=== PATIENT | male | born 1975 | race Caucasian/White ===

== ENCOUNTER 2019-02-15 09:11 | Day surgery (SDC) | payer BC ==
[2019-02-12 14:10] VITALS: BMI 37.3
[2019-02-15] MEDS ORDERED: Fentanyl 250 MCG/5 ML VIAL ONE (09:25)
[2019-02-15] MEDS ORDERED: Famotidine/PF 20 mg/2ml Vial ONE (09:25)
[2019-02-15] MEDS ORDERED: Fentanyl 100 MCG/2 ML VIAL ONE (09:25)
[2019-02-15] MEDS ORDERED: Bupivacaine HCl 0.5%/Epinephrine 1:200,000/PF 30 ml Vial ONE (09:33)
[2019-02-15 09:45] LABS: #Eosinphils 0.3 thou/uL (0.0-0.7); #Lymphocytes 2.3 thou/uL (1.20-3.40); #Monocytes 0.5 thou/uL (0.11-0.59); #Neutrophils 4.1 thou/uL (1.40-6.50); %Basophils 0.4 % (0.0-1.0); %Eosinophils 3.6 % (0.0-10.0); %Lymphocytes 31.6 % (21.0-51.0); %Monocytes 7.5 % (0.0-10.0); Hemoglobin 16.7 g/dL (14.0-18.0); Mean Corpuscular HGB CONC 33.2 g/dL (32.0-36.0); Mean Corpuscular Hemoglobin 27.3 pg (27.0-31.0); Mean Corpuscular Volume 82.2 fL (78.0-98.0); Mean Platelet Volume 8.4 fL (7.4-10.4); Platelet Count 197 thou/uL (130-400); RBC Distribution Width 12.4 % (11.5-14.5); Red Blood Cell (RBC) Count 6.12 mill/uL (4.70-6.10); White Blood Cell (WBC) Count 7.2 thou/uL (4.8-10.8)
--- NOTE | 2019-02-15 10:46 | HP ---
CHIEF COMPLAINT: Umbilical hernia. HISTORY OF PRESENT ILLNESS: The patient is a 43-year-old male, who has had several year history of umbilical hernia. He fell and developed acute severe pain. It was reduced. The pain was resolved. He is here for repair. PAST MEDICAL HISTORY: Otherwise, healthy. PAST SURGICAL HISTORY: None. MEDICATIONS: No medications. ALLERGIES: NO KNOWN DRUG ALLERGIES. FAMILY HISTORY: Both parents are alive, in good health. SOCIAL HISTORY: He is . No tobacco. Rare alcohol. PHYSICAL EXAMINATION: VITAL SIGNS: Height 6 feet, weight 294, body mass index 39.98. GENERAL: He is a well-developed, well-nourished male, in no apparent distress. HEENT: Unremarkable. LUNGS: Clear. HEART: Regular rate and rhythm. ABDOMEN: Soft. He has a 2 cm umbilical hernia, which is reducible. EXTREMITIES: Good pulses. No pedal edema. ASSESSMENT: Umbilical hernia. PLAN: Umbilical hernia repair with possible mesh. CONSENT: I have discussed planned procedure as well as risk of bleeding, infection, recurrence, and injury to bowel. He understands and gives informed consent. Job ID: [id number]
--- NOTE | 2019-02-15 12:24 | OP ---
DATE OF PROCEDURE: 02/15/2019 PREOPERATIVE DIAGNOSIS: Umbilical hernia. PROCEDURE PERFORMED: Umbilical hernia repair with mesh. INDICATIONS: A 43-year-old male with a painful umbilical hernia. FINDINGS: 1 cm defect, 6.4 cm piece of mesh used. DESCRIPTION OF PROCEDURE: After informed consent was obtained, the patient was taken to the operating room, given general mask anesthesia, placed in the supine position. Abdomen was prepped and draped in usual fashion. The local anesthesia infiltrated subcutaneously and deep with 0.5% Marcaine. A subumbilical incision was performed. Subcu divided sharply. The hernia sac was dissected off the umbilical skin, then circumferentially down to the fascia and excised. Hemostasis achieved with electrocautery. Contents reduced. A 6.4 cm Proceed mesh patch was inserted intra-abdominally. The leaves were pulled up, sutured to the abdominal wall with interrupted 0 Ethibond. The mesh was further secured with 2 other 0 Ethibond sutures. Then, the umbilical skin was sutured to the fascia with interrupted 3-0 Vicryl to restore umbilical contour. The skin then closed with interrupted 4-0 Rapide. Steri-Strips applied. Sterile bandage applied. The patient tolerated the procedure well, transferred to Recovery in good condition. Sponge and needle count verified correct x2. Job ID: [id number]
[2019-02-15] MEDS ORDERED: Dexamethasone 20 MG/5 ML VIAL ONE (15:59)
[2019-02-15] MEDS ORDERED: Lidocaine 1% PF 5 ML VIAL ONE (15:59)
[2019-02-15] MEDS ORDERED: Metoclopramide HCl 10 MG/2 ML VIAL ONE (15:59)
[2019-02-15] MEDS ORDERED: Ondansetron PF 4 MG/2 ML Vial ONE (15:59)
[2019-02-15] MEDS ORDERED: PROPOFOL 200 MG/20 ML VIAL ONE (15:59)
[2019-02-15] MEDS ORDERED: Glycopyrrolate 0.2 MG/ML 5 ML SYRINGE ONE (15:59)
[2019-02-15] MEDS ORDERED: Rocuronium Bromide 10 MG/ML (10ML VIAL) ONE (15:59)
[2019-02-15] MEDS ORDERED: Ketorolac Tromethamine 30 MG/ML VIAL ONE (15:59)
== END 2019-02-15 12:40 | disposition home or self-care (01) ==
LOC: SDC 09:11
PROVIDERS: ATTEND Surgery
PROC: 0WUF0JZ Supplement Abdominal Wall with Synthetic Substitute, Open Approach (ICD-10-PCS; principal; 2019-02-15)
DX: K42.9 Umbilical hernia without obstruction or gangrene (principal)
CPT/HCPCS: 85025; J0131; J0670; J0690; J3010; S0028